=== PATIENT | female | born 1940 | race Caucasian/White ===

== ENCOUNTER 2021-05-03 12:49 | Inpatient (IN) ==
[2021-05-03] MEDS ORDERED: Naloxone 0.4 MG/ML INJ IVP PRN (15:38)
[2021-05-03] MEDS ORDERED: Mag Hydrox/Al Hydrox/Simeth 30 ML UDC PO PRN (15:38)
[2021-05-03] MEDS ORDERED: Ondansetron ODT 4 MG TAB.RAPDIS SL PRN (15:38)
[2021-05-03] MEDS ORDERED: *HR* Dextrose 50 % in Water (Syg) 50 ML SYRINGE IVP PRN (15:43)
[2021-05-03] MEDS ORDERED: D5% in Water 1,000 ML IVC PRN (15:43)
[2021-05-03] MEDS ORDERED: Dextrose Gel 15 GM/37.5 ML TUBE PO PRN ×2 (15:43)
[2021-05-03] MEDS ORDERED: *HR* Heparin 5,000 UNIT/ML VIAL IVP ONE (15:44)
[2021-05-03] MEDS ORDERED: Perflutren Lipid Microsphere 1.3 ML in 0.9 % Sodium Chloride 8.7 ML IVP PRN (15:44)
[2021-05-03] MEDS ORDERED: *HR* Heparin 5,000 UNIT/ML VIAL IVP PRN ×2 (15:44)
[2021-05-03] MEDS ORDERED: DilTIAZem 50 MG/50 ML IV.SOLN IVC SCH (15:45)
[2021-05-03] MEDS: Insulin LISPRO 300 UNITS/3 ML VIAL SUBQ SCH ×2 (17:10→20:56)
[2021-05-03] MEDS: Heparin 25,000UNIT/250ML 1/2NS 25,000 UNIT/250 ML IV.SOLN IVC SCH (17:22)
[2021-05-03 17:23] LABS: Magnesium 1.6 mg/dL (1.6-2.6)
[2021-05-03 17:29] LABS: Troponin I 0.39 ng/mL (< 0.04)
[2021-05-03] MEDS: Melatonin 3 MG TABLET PO PRN (21:17)
[2021-05-03] MEDS ORDERED: hydrOXYzine pamoate 25 MG CAPSULE PO PRN (23:15)
[2021-05-04 01:33] LABS: BUN/Creatinine Ratio 19 (6-26); Blood Urea Nitrogen 12 mg/dL (8-23); Calcium 8.7 mg/dL (8.6-10.3); Carbon Dioxide 22 mEq/L (23-29); Chloride 104 mEq/L (98-107); Glucose 211 mg/dL (70-105); Osmolality,Calculated 292 (280-300); Potassium 3.7 mEq/L (3.5-5.1); Sodium 138 mEq/L (136-145); eGFR For African Americans > 60 (> 60); eGFR For Non-African Americans > 60 (> 60)
[2021-05-04 06:15] LABS: Hematocrit 44.2 % (35.3-44.9); Hemoglobin 13.7 g/dL (11.5-15.4); Mean Corpuscular Hemoglobin 27.1 pg (28.0-33.3); Mean Corpuscular Volume 87.5 fL (83.0-100.0); Mean Platelet Volume 12.1 fL (9.4-12.4); Platelet Count 266 K/mcL (140-400); Red Blood Count 5.05 M/mcL (3.82-4.97); Red Cell Distribution Width 14.3 % (11.5-14.5); White Blood Count 11.8 K/mcL (4.3-11.1)
[2021-05-04 06:34] LABS: Troponin I 0.28 ng/mL (< 0.04)
[2021-05-04] MEDS: Insulin LISPRO 300 UNITS/3 ML VIAL SUBQ SCH ×4 (08:58→20:45)
[2021-05-04] MEDS ORDERED: Aspirin Enteric Coated 81 MG Tablet PO SCH (10:30)
[2021-05-04] MEDS: amLODIPine 5 MG TABLET PO SCH (11:56)
[2021-05-04] MEDS: lisinopriL 20 MG TABLET PO SCH (11:56)
[2021-05-04] MEDS: Heparin 25,000UNIT/250ML 1/2NS 25,000 UNIT/250 ML IV.SOLN IVC SCH (11:58)
[2021-05-04 12:03] LABS: Thyroid Stimulating Hormone 2.067 mcIU/mL (0.340-5.600)
[2021-05-04 18:39] LABS: Adenovirus Not Detected (Not Detect); Bordetella Pertussis Not Detected (Not Detect); Chlamydophila pneumoniae Not Detected (Not Detect); Coronavirus 229E Not Detected (Not Detect); Coronavirus HKU1 Not Detected (Not Detect); Coronavirus NL63 Not Detected (Not Detect); Coronavirus OC43 Not Detected (Not Detect); Human Metapneumovirus Not Detected (Not Detect); Human Rhinovirus/Enterovirus Not Detected (Not Detect); Influenza A Subtype 2009 H1 Not Detected (Not Detect); Influenza B Not Detected (Not Detect); Mycoplasma pneumoniae Not Detected (Not Detect); Parainfluenza Virus 1 Not Detected (Not Detect); Parainfluenza Virus 2 Not Detected (Not Detect); Parainfluenza Virus 3 Not Detected (Not Detect); Parainfluenza Virus 4 Not Detected (Not Detect); Respiratory Syncytial Virus Not Detected (Not Detect); SARS-CoV-2 Not Detected (Not Detect)
[2021-05-04] MEDS: traZODone 50 MG TABLET PO PRN (19:58)
[2021-05-04] MEDS: Apixaban 5 MG TABLET PO SCH (19:59)
[2021-05-04] MEDS ORDERED: *HR* Metoprolol 5 MG/5 ML VIAL IVP ONE (20:39)
[2021-05-05] MEDS ORDERED: *HR* Metoprolol 5 MG/5 ML VIAL IVP ONE ×2 (06:28→10:08)
[2021-05-05] MEDS: lisinopriL 20 MG TABLET PO SCH (08:24)
[2021-05-05] MEDS: amLODIPine 5 MG TABLET PO SCH (08:24)
[2021-05-05] MEDS: Apixaban 5 MG TABLET PO SCH ×2 (08:24→20:47)
[2021-05-05] MEDS ORDERED: amLODIPine 5 MG TABLET PO SCH (09:00)
[2021-05-05] MEDS: Insulin LISPRO 300 UNITS/3 ML VIAL SUBQ SCH ×4 (10:07→20:47)
[2021-05-05] MEDS: traZODone 50 MG TABLET PO PRN (20:47)
[2021-05-05] MEDS: Melatonin 3 MG TABLET PO PRN (20:47)
[2021-05-05] MEDS ORDERED: DilTIAZem CD (24hr) 120 MG CAP.ER.24H PO SCH (21:00)
[2021-05-06] MEDS: Apixaban 5 MG TABLET PO SCH ×2 (07:35→21:00)
[2021-05-06] MEDS: Insulin LISPRO 300 UNITS/3 ML VIAL SUBQ SCH ×4 (07:44→20:53)
[2021-05-06] MEDS ORDERED: lisinopriL 20 MG TABLET PO SCH (09:00)
[2021-05-06] MEDS: DilTIAZem CD (24hr) 240 MG CAP.ER.24H PO SCH (10:02)
[2021-05-06] MEDS: lisinopriL 10 MG TABLET PO SCH (16:59)
[2021-05-06] MEDS: Metoprolol 100 MG TABLET PO SCH (21:00)
[2021-05-06] MEDS: Melatonin 3 MG TABLET PO PRN (22:43)
[2021-05-06] MEDS: traZODone 50 MG TABLET PO PRN (22:44)
[2021-05-07 07:59] VITALS: TEMP 97.6
[2021-05-07] MEDS: Insulin LISPRO 300 UNITS/3 ML VIAL SUBQ SCH ×2 (08:07→11:48)
[2021-05-07] MEDS: DilTIAZem CD (24hr) 240 MG CAP.ER.24H PO SCH (08:08)
[2021-05-07] MEDS: lisinopriL 10 MG TABLET PO SCH (08:08)
[2021-05-07] MEDS: Metoprolol 100 MG TABLET PO SCH (08:08)
[2021-05-07] MEDS: Apixaban 5 MG TABLET PO SCH (08:08)
[2021-05-07 11:09] VITALS: BP 146/85; PULSE 88; O2SAT 94
[2021-05-07] MEDS ORDERED: FLU Vac QV 21-22 (6Month+)/PF 0.5 ML SYRINGE IM ONE (11:35)
== END 2021-05-07 15:42 | disposition home health service (06) | DRG 282 ==
LOC: 2ANU → SUATTDRO 15:24
PROVIDERS: ADMIT Family Medicine; ATTEND Internal Medicine